=== PATIENT | female | born 1960 | race African-American/Black ===

== ENCOUNTER 2017-05-22 12:42 | Emergency (ER) | payer OTHER ==
[~2017-05-22] VITALS: Ht 160 cm; Wt 77.1 kg
--- NOTE | ~2017-05-22 | EKG ---
[place] [address] [facility] [place] [address] ELECTROCARDIOGRAM REPORT Name: GRACIEHOWARD K [id number] Admission: 05/22/17 Attend Phys: Discharge: Date of : 58 Report #: [id number] THIS REPORT FOR: //name// [facility] ED Test Date: 2017-05-22 Test Time: 12:46:41 Pat Name: HOWARD BOWMAN Department: Room: Gender: F Refiner Operator: [facility] : 1960 Requested By: Amy Nick Order Number: [id number] MD: Jimmy Awan Measurements Intervals [place] Rate: 92 P: -8 AR: 144 QRS: -14 QRSD: 80 T: 25 QT: 329 QTc: 407 Interpretive Statements Sinus rhythm Consider left ventricular hypertrophy No previous ECG available for comparison Electronically Signed On 05-22-2017 17:12:52 CDT by Jimmy Awan [email or web address] <ELECTRONICALLY SIGNED> By: Jimmy Awan MD 05/22/17 1712 1246 1246 Jimmy Awan MD /EPI
[2017-05-22] MEDS ORDERED: PLAVIX 75 MG TA75 M1 PO (13:10)
[2017-05-22] MEDS ORDERED: LOPRESSOR50 PO (13:11)
[2017-05-22] MEDS ORDERED: SYNTHROID75 MCG PO (13:11)
[2017-05-22] MEDS ORDERED: PRAVACHOL40 MG PO (13:12)
[2017-05-22 14:04] LABS: HEMATOCRIT 38.3 % (37.0-47.0); HEMOGLOBIN 12.8 gm/dL (12.0-15.0); MCH 27.8 pg (26.0-34.0); MCHC 33.4 g/dL (28.0-37.0); MCV 83.2 fL (80.0-100.0); RDW 13.2 % (10.5-14.5); WBC 21.8 thou/uL (4.0-11.0)
[2017-05-22 14:15] LABS: ANION GAP 8 mmol/L (7-16); BUN 11 mg/dL (7-18); CALCIUM 9.4 mg/dL (8.5-10.1); CHLORIDE 102 mmol/L (98-107); CO2 26 mmol/L (21-32); CREATININE 1.2 mg/dL (0.6-1.0); GLUCOSE 104 mg/dL (74-106); POTASSIUM 3.3 mmol/L (3.5-5.1); SODIUM 136 mmol/L (136-145)
[2017-05-22 14:24] LABS: TROPONIN-I < 0.04 ng/mL (<0.06)
[2017-05-22 14:59] LABS: ABSOLUTE NEUTROPHILS 18.1 thou/uL (1.4-8.2); PLATELET COUNT 323 thou/uL (150-400); PLATELET ESTIMATE NORMAL
[2017-05-22 17:00] LABS: URINE BILIRUBIN NEGATIVE (Negative); URINE BLOOD 1+ (Negative); URINE CLARITY CLEAR; URINE COLOR YELLOW; URINE GLUCOSE-RANDOM* NEGATIVE (Negative); URINE KETONES TRACE (Negative); URINE NITRITE-REFLEX NEGATIVE (Negative); URINE PROTEIN (DIPSTICK) TRACE (Negative); URINE UROBILINOGEN 0.2 E.U./dl (0.2-1.0)
[2017-05-22 17:08] LABS: URINE LEUKOCYTES-REFLEX 1+ (Negative)
[2017-05-22 17:23] LABS: SQUAMOUS 4-10 Moderate /LPF (0-3); URINE RBC 3-10 Few /HPF (0-2); URINE WBC-REFLEX 6-15 Few /HPF (0-5)
[2017-05-22 17:24] LABS: CASTS None Seen /LPF (None Seen); CRYSTALS None Seen /LPF (None Seen)
[2017-05-22] MEDS ORDERED: HYDROCODONE-AP1 EAC6 PO (17:45)
[2017-05-22] MEDS ORDERED: ZPAK PO (17:45)
[2017-05-22 18:24] VITALS: BP 131/78
== END 2017-05-22 18:31 | disposition home or self-care (01) ==
LOC: ER 12:42
PROVIDERS: Emergency Medicine; Physician Assistant
DX: J18.9 Pneumonia, unspecified organism (principal); J98.11 Atelectasis; E03.9 Hypothyroidism, unspecified; I10 Essential (primary) hypertension; E78.00 Pure hypercholesterolemia, unspecified; Z88.6 Allergy status to analgesic agent